=== PATIENT | male | born 1980 | race African-American/Black ===

== ENCOUNTER 2019-04-28 23:09 | Emergency (ER) | payer OTHER ==
[~2019-04-28] VITALS: Ht 188 cm; Wt 109.0 kg
[2019-04-28 23:14] VITALS: BP 144/88
== END 2019-04-29 00:59 | disposition left against medical advice (07) ==
LOC: ER 23:09
DX: Z53.21 Procedure and treatment not carried out due to patient leaving prior to being seen by health care provider (principal); Z98.890 Other specified postprocedural states